=== PATIENT | male | born 1945 | race Caucasian/White ===

== ENCOUNTER 2022-01-19 05:29 | Day surgery (SDC) | payer MEDICARE, OTHER ==
[~2022-01-19] VITALS: Ht 147.3 cm; Wt 72.3 kg
[~2022-01-19 05:29] MED LIST: FINA-27 PO; MESA250CR PO; METO50 PO; OMEP20TA2 PO; PANT-31 PO; TERA5CAP77 PO
[2022-01-19] MEDS ORDERED: LIDOCAINE 2% 30 ML JELLY TP ONE (05:30)
[2022-01-19] MEDS ORDERED: LIDOCAINE 4% 50 ML SOLUTION TP ONE (05:30)
[2022-01-19] MEDS ORDERED: BENZOCAINE 20% 50 MCG/SPRAY 57 GM TP ONE (05:30)
[2022-01-19] MEDS ORDERED: SODIUM CHLORIDE 0.9% 1,000 ML IV ONE (06:30)
[2022-01-19] MEDS ORDERED: SODIUM CHLORIDE 0.9% 1,000 ML ONE (06:35)
[2022-01-19 06:42] LABS: COVID AG,FIA SOURCE NASAL SWAB
[2022-01-19] MEDS ORDERED: DOCU-385 PO (07:04)
[2022-01-19] MEDS ORDERED: FLUT1BLS10 IH (07:04)
[2022-01-19] MEDS ORDERED: ERGO2000 PO (07:04)
[2022-01-19] MEDS ORDERED: LOSA-382 PO (07:04)
[2022-01-19] MEDS ORDERED: PRED-729 PO (07:04)
[2022-01-19] MEDS ORDERED: MONT-35 PO (07:04)
[2022-01-19] MEDS ORDERED: FLUT16H NASAL (07:04)
[2022-01-19] MEDS ORDERED: UMEC62.5 NEB (07:04)
[2022-01-19] MEDS ORDERED: FAMO20 PO (07:04)
[2022-01-19] MEDS ORDERED: ALEN35TA41 PO (07:04)
[2022-01-19] MEDS ORDERED: MIDAZOLAM HCL 5 MG/ML VIAL ONE (07:51)
[2022-01-19] MEDS ORDERED: FentaNYL CITRATE PF 100 MCG/2 ML VIAL ONE (07:51)
[2022-01-19] MEDS ORDERED: MethylPREDNISolone SOD SUCC 125 MG/2 ML VIAL IVP ONE (09:00)
[2022-01-19] MEDS ORDERED: MethylPREDNISolone SOD SUCC 125 MG/2 ML VIAL ONE (09:08)
[2022-01-19] MEDS ORDERED: OXYGEN THERAPY IH SCH (20:00)
== END 2022-01-19 11:15 | disposition home or self-care (01) ==
LOC: SURGERY 05:29
PROVIDERS: ATTEND Internal Medicine Critical Care Medicine
DX: J38.4 Edema of larynx (principal); B37.0 Candidal stomatitis; I10 Essential (primary) hypertension; Z98.890 Other specified postprocedural states; Z90.5 Acquired absence of kidney; Z79.899 Other long term (current) drug therapy
CPT/HCPCS: 31623; 31624; 71045; 71250; 87015; 87070; 87101; 87206; 87220; 87426; 88112; 88184; 88185; 88305; 88312; C9803; J2250; J2930; J3010; J7030; Z7610